=== PATIENT | male | born 1965 | race Hispanic/Latino ===

== ENCOUNTER 2018-04-28 16:05 | Observation (INO) | payer BC ==
--- OUTSIDE RECORDS SUMMARY | 2018-04-28 16:09 | XMS REPORT ---
:1965 Author Organization eClinicalWorks Care Team Providers Name Role Phone ROMERO YANCEY Provider Role Unavailable Allergies No Known Allergies Problems Problem Type Condition Code Onset Dates Condition Status Problem Type 2 diabetes mellitus without E11.9 Active complications Problem Other hyperlipidemia E78.4 Active Problem CAD of [place] Artery W Angina I25.111 Active Problem Essential (primary) hypertension I10 Active Medications Medication Code Code Instructions Start End Date Status Dosage System Date Metoprolol [facility] [id number] 100 orally 2 Active 1/2 Tartrate times a day tab(s) Results No Known Results Summary Purpose eClinicalWorks Submission
--- OUTSIDE RECORDS SUMMARY | 2018-04-28 16:09 | XMS REPORT ---
:1965 Author Organization eClinicalWorks Care Team Providers Name Role Phone ROMERO YANCEY Provider Role Unavailable Allergies, Adverse Reactions, Alerts Substance Reaction Event Type N.K.D.A. Info Not Available Non Drug Allergy Problems Problem Type Condition Code Onset Dates Condition Status Assessment Type 2 diabetes mellitus without E11.9 Active complications Assessment Other hyperlipidemia E78.4 Active Problem CAD of [place] Artery W Angina I25.111 Active Problem Type 2 diabetes mellitus without E11.9 Active complications Problem Coronary artery disease involving I25.10 Active [place] coronary artery of [place] heart without angina pectoris Assessment Coronary artery disease involving I25.10 Active [place] coronary artery of [place] heart without angina pectoris Assessment Essential (primary) hypertension I10 Active Problem Other hyperlipidemia E78.4 Active Problem Essential (primary) hypertension I10 Active Medications Medication Code Code Instructions Start End Date Status Dosage System Date Aspir 81 [facility] 41902813523 81 mg orally Active 1 tab(s) once a day amlodipine [facility] 06007534896 10 mg orally Active 1 tab(s) once a day Crestor [facility] 98224047084 10 mg orally Feb 22, Active 1 tab(s) once a day (at 2017 bedtime) lisinopril [facility] 52008624641 40 mg orally Active 1 tab(s) once a day Metoprolol [facility] 74233276246 100 orally 2 Active 1/2 Tartrate times a day tab(s) Vital Signs Date/Time: Nov 12, 2016 Blood Pressure Systolic 130 mm Hg Weight 145 lbs Height 65 in BMI 24.13 Index Blood Pressure Diastolic 80 mm Hg Results No Known Results Summary Purpose [employer] Submission
--- OUTSIDE RECORDS SUMMARY | 2018-04-28 16:09 | XMS REPORT ---
:1965 Author Organization eClinicalWorks Care Team Providers Name Role Phone ROMERO YANCEY Provider Role Unavailable Allergies No Known Allergies Problems Problem Type Condition Code Onset Dates Condition Status Problem Essential (primary) hypertension I10 Active Problem Essential hypertension I10 Active Problem Atherosclerosis of [place] coronary I25.118 Active artery of [place] heart with stable angina pectoris Problem Unstable angina I20.0 Active Problem Type 2 diabetes mellitus without E11.9 Active complications Problem Other hyperlipidemia E78.4 Active Problem Coronary artery disease involving I25.10 Active [place] coronary artery of [place] heart without angina pectoris Problem CAD of [place] Artery W Angina I25.111 Active Medications Medication Code Code Instructions Start End Date Status Dosage System Date Brilinta [facility] [id number] 90 mg orally 2 Active 1 tab(s) (ticagrelor) times a day Results No Known Results Summary Purpose eClinicalWorks Submission
--- OUTSIDE RECORDS SUMMARY | 2018-04-28 16:09 | XMS REPORT ---
:1965 Author Organization eClinicalWorks Care Team Providers Name Role Phone ROMERO YANCEY Provider Role Unavailable Allergies No Known Allergies Problems Problem Type Condition Code Onset Dates Condition Status Problem Essential (primary) hypertension I10 Active Problem Essential hypertension I10 Active Problem Atherosclerosis of [place] coronary I25.118 Active artery of [place] heart with stable angina pectoris Problem Unstable angina I20.0 Active Problem Type 2 diabetes mellitus without E11.9 Active complications Problem Other hyperlipidemia E78.4 Active Problem Coronary artery disease involving I25.10 Active [place] coronary artery of [place] heart without angina pectoris Problem CAD of [place] Artery W Angina I25.111 Active Medications No Known Medications Results No Known Results Summary Purpose [employer] Submission
--- OUTSIDE RECORDS SUMMARY | 2018-04-28 16:09 | XMS REPORT ---
:1965 Author Organization eClinicalWorks Care Team Providers Name Role Phone ROMERO YANCEY Provider Role Unavailable Allergies No Known Allergies Problems Problem Type Condition Code Onset Dates Condition Status Problem Type 2 diabetes mellitus without E11.9 Active complications Problem Other hyperlipidemia E78.4 Active Problem CAD of [place] Artery W Angina I25.111 Active Problem Essential (primary) hypertension I10 Active Assessment Essential (primary) hypertension I10 Active Medications Medication Code System Code Instructions Start Date End Date Status Dosage Crestor [facility] [id number] 10 mg orally once Feb 22, Active 1 tab(s) a day (at 2017 bedtime) Results No Known Results Summary Purpose eClinicalWorks Submission
--- OUTSIDE RECORDS SUMMARY | 2018-04-28 16:09 | XMS REPORT ---
:1965 Author Organization eClinicalWorks Care Team Providers Name Role Phone ERINN GANT Provider Role Unavailable Allergies, Adverse Reactions, Alerts Substance Reaction Event Type N.K.D.A. Info Not Available Non Drug Allergy Problems Problem Type Condition Code Onset Dates Condition Status Assessment Pain in right leg M79.604 Active Problem Essential (primary) hypertension I10 Active Assessment Atherosclerosis of [place] coronary I25.118 Active artery of [place] heart with stable angina pectoris Assessment Essential (primary) hypertension I10 Active Assessment Pain of left leg M79.605 Active Problem Essential hypertension I10 Active Problem Atherosclerosis of [place] coronary I25.118 Active artery of [place] heart with stable angina pectoris Problem Unstable angina I20.0 Active Problem Type 2 diabetes mellitus without E11.9 Active complications Problem Other hyperlipidemia E78.4 Active Problem Coronary artery disease involving I25.10 Active [place] coronary artery of [place] heart without angina pectoris Problem CAD of [place] Artery W Angina I25.111 Active Medications Medication Code Code Instructions Start End Date Status Dosage System Date amlodipine [facility] [id number] 10 mg orally Active 1 tab(s) once a day clonazepam [place] 93264070870 0.5 mg orally 2 Mar 17, Active 1 tab(s) times a day as [address] [facility] 15773663788 10 mg orally Active 1 tab(s) once a day (at bedtime) Aspir [address] [facility] 48055736264 81 mg orally Active 1 tab(s) once a day Brilinta ND 89348625875 90 mg orally 2 Active 1 tab(s) (ticagrelor) times a day carvedilol ND 24569847677 12.5 mg orally 2 Oct 21, Active 1 tab(s) times a day [address] [facility] 45391706473 40 mg orally Active 1 tab(s) once a day Vital Signs Date/Time: Mar 29, 2018 Blood Pressure Diastolic 90 mm Hg Blood Pressure Systolic 140 mm Hg Height 65 in Results No Known Results Summary Purpose eClinicalWorks Submission
--- OUTSIDE RECORDS SUMMARY | 2018-04-28 16:09 | XMS REPORT ---
:1965 Author Organization eClinicalWorks Care Team Providers Name Role Phone ROMERO YANCEY Provider Role Unavailable Allergies No Known Allergies Problems Problem Type Condition Code Onset Dates Condition Status Problem Essential (primary) hypertension I10 Active Problem Essential hypertension I10 Active Problem Atherosclerosis of [place] coronary I25.118 Active artery of [place] heart with stable angina pectoris Problem Unstable angina I20.0 Active Problem Type 2 diabetes mellitus without E11.9 Active complications Problem Other hyperlipidemia E78.4 Active Problem Coronary artery disease involving I25.10 Active [place] coronary artery of [place] heart without angina pectoris Problem CAD of [place] Artery W Angina I25.111 Active Medications No Known Medications Results No Known Results Summary Purpose [employer] Submission
--- OUTSIDE RECORDS SUMMARY | 2018-04-28 16:09 | XMS REPORT | Continuity of Care Document ---
:1965 Author Organization Interface Problems Problem Status Onset Classification Date Comments Source Date Reported Type 2 diabetes Active Diagnosis 04/26/2018 [place] mellitus without Cardiac complications Clinic Other Active Problem 04/26/2018 [place] hyperlipidemia [facility]iac [facility] CAD of [place] Active Problem 04/26/2018 [place] Artery W Angina [facility] Essential Active Problem 04/26/2018 [place] hypertension [facility]iac [facility] Atherosclerosis of Active Diagnosis 04/26/2018 [place] coronary Cardiac artery of [facility] heart with stable angina pectoris Unstable angina Active Problem 04/26/2018 [place] [facility] Coronary artery Active Problem 04/26/2018 [place] disease involving Cardiac [place] coronary [facility] artery of [place] heart without angina pectoris Pain in right leg Active Diagnosis 03/30/2018 [place] [facility] Pain of left leg Active Diagnosis 03/30/2018 [place] [facility] Unsteady gait Active Problem 04/26/2018 [place] [facility] Hyperlipidemia NOS Active Problem 11/09/2013 [place] [facility] Hypertension Active Problem 11/09/2013 [place] [facility] Coronary Active Problem 11/09/2013 [place] atherosclerosis of Cardiac [facility] vessel Clinic Diabetes Type II Active Diagnosis 11/09/2013 [place] [facility] Nausea Active Diagnosis 2018 [place] [facility] Atherosclerotic Active Diagnosis 12/27/2014 [place] heart disease of Cardiac [place] coronary [facility] artery with angina pectoris with documented spasm CAD of [place] Active Problem 07/12/2015 [place] Artery with Angina Cardiac Clinic Other specified Active Diagnosis 11/01/2015 [place] cardiac arrhythmias [facility]iac Clinic Chest pain, Active Diagnosis 04/11/2016 [place] unspecified type Cardiac Clinic Medications Medication Details Route Status Patient Ordering Order Source Instructions Provider Date clonazepam 1 tab(s) orally Active 0.5 mg orally [facility] [place] 2 times a day 019 Cardiac as needed Clinic carvedilol 1 tab(s) orally Active 12.5 mg orally [facility] [place] 2 times a day 018 [facility]iac Clinic Metoprolol 1/2 orally Active 100 orally 2 [facility] [place] Tartrate tab(s) times a day 018 Cardiac Clinic Crestor 1 tab(s) orally Active 10 mg orally [facility] [place] once a day (at 017 Cardiac bedtime) Clinic Crestor 1 tab(s) orally Active 10 mg orally [facility] [place] once a day (at 017 Cardiac bedtime) Clinic Atorvastatin 1 tab(s) orally No 40 mg orally [facility] [place] Calcium Longer once a day (at 016 Cardiac Active bedtime) Clinic Pravachol 1 tab(s) orally No 40 mg orally [facility] [place] Longer once a day (at 016 Cardiac Active bedtime) Clinic lisinopril 1 tab(s) orally Active 40 mg orally [facility] [place] once a day 015 Cardiac Clinic Pravachol 1 tab(s) orally Active 40 mg orally [facility] [place] once a day (at 014 Cardiac bedtime) Clinic Metoprolol 1/2 orally Active 100 mg orally [facility] [place] Tartrate tab(s) 2 times a day 012 Cardiac Clinic Nitrostat 1 tab(s) sublingually Active 0.4 mg [facility] [place] sublingually 012 Cardiac every 5 Clinic minutes Aspirin Low 1 tab(s) orally Active 81 mg orally [facility] [place] Dose once a day 011 Cardiac Clinic amlodipine 1 tab(s) orally Active 10 mg orally [facility] [place] once a day 011 Cardiac Clinic Metoprolol 1/2 orally Active 100 orally 2 [facility] Tartrate tab(s) times a day Cardiac Clinic lisinopril 1 tab(s) orally Active 40 mg orally [facility] once a day Cardiac Clinic amlodipine 1 tab(s) orally Active 10 mg orally [facility] once a day Cardiac Clinic Aspir 81 1 tab(s) orally Active 81 mg orally [facility] once a day Cardiac Clinic amlodipine 1 tab(s) orally Active 10 mg orally [facility] once a day Cardiac Clinic Crestor 1 tab(s) orally Active 10 mg orally [facility] once a day (at Cardiac bedtime) Clinic Brilinta 1 tab(s) orally Active 90 mg orally 2 [facility] (ticagrelor) times a day Cardiac Clinic lisinopril 1 tab(s) orally Active 40 mg orally [facility] once a day Cardiac Clinic lisinopril 1 tab(s) orally Active 40 mg orally [facility] once a day Cardiac Clinic Pravachol 1 tab(s) orally Active 40 orally once [facility] [place] a day (at Cardiac bedtime) Clinic Metoprolol 1/2 orally Active 100 mg orally [facility] [place] Tartrate tab(s) 2 times a day Cardiac Clinic Allergies, Adverse Reactions, Alerts Substance Category Reaction Severity Reaction Status Date Comments Source type Reported N.K.D.A. Adverse Info Not Adverse Active [place] Reaction Available Reaction 9 Cardiac Clinic Immunizations Immunization Date Given Site Status Last Updated Comments Source Results Order Results Value Reference Date Interpretation Comments Source Name Range Vital Signs Vital Sign Value Date Comments Source Systolic (mm Hg) 138 04/24/2018 [place] [facility] Weight 150 04/24/2018 [place] [facility] Height 65 04/24/2018 [place] [facility] Diastolic (mm Hg) 86 04/24/2018 [place] [facility] Diastolic (mm Hg) 90 03/29/2018 [place] [facility] Systolic (mm Hg) 140 03/29/2018 [place] [facility] Height 65 03/29/2018 [place] [facility] Systolic (mm Hg) 110 03/23/2018 [place] [facility] Weight 147 03/23/2018 [place] [facility] Height 65 03/23/2018 [place] [facility] Diastolic (mm Hg) 80 03/23/2018 [place] [facility] Systolic (mm Hg) 150 03/07/2018 [place] [facility] Weight 152 03/07/2018 [place] [facility] Height 65 03/07/2018 [place] [facility] Diastolic (mm Hg) 90 03/07/2018 [place] [facility] Systolic (mm Hg) 130 11/11/2017 [place] [facility] Weight 150.8 11/11/2017 [place] [facility] Height 65 11/11/2017 [place] [facility] Diastolic (mm Hg) 70 11/11/2017 [place] [facility] Systolic (mm Hg) 142 10/26/2017 [place] [facility] Weight 152.2 10/26/2017 [place] [facility] Height 65 10/26/2017 [place] [facility] Diastolic (mm Hg) 80 10/26/2017 [place] [facility] Systolic (mm Hg) 146 10/21/2017 [place] [facility] Weight 153 10/21/2017 [place] [facility] Height 65 10/21/2017 [place] [facility] Heart Rate 39 10/21/2017 [place] [facility] Diastolic (mm Hg) 80 10/21/2017 [place] [facility] Systolic (mm Hg) 134 06/10/2017 [place] [facility] Weight 147.4 06/10/2017 [place] [facility] Height 65 06/10/2017 [place] [facility] Diastolic (mm Hg) 80 06/10/2017 [place] [facility] Systolic (mm Hg) 130 11/12/2016 [place] [facility] Weight 145 11/12/2016 [place] [facility] Height 65 11/12/2016 [place] [facility] Diastolic (mm Hg) 80 11/12/2016 [place] [facility] Systolic (mm Hg) 130 07/09/2016 [place] [facility] Weight 141 07/09/2016 [place] [facility] Height 65 07/09/2016 [place] [facility] Diastolic (mm Hg) 70 07/09/2016 [place] [facility] Systolic (mm Hg) 140 04/09/2016 [place] [facility] Weight 142 04/09/2016 [place] [facility] Height 65 04/09/2016 [place] [facility] Diastolic (mm Hg) 90 04/09/2016 [place] [facility] Diastolic (mm Hg) 70 12/15/2015 [place] [facility] Systolic (mm Hg) 100 12/15/2015 [place] [facility] Height 65 12/15/2015 [place] [facility] Systolic (mm Hg) 160 10/31/2015 [place] [facility] Weight 144 10/31/2015 [place] [facility] Height 65 10/31/2015 [place] [facility] Diastolic (mm Hg) 70 10/31/2015 [place] [facility] Systolic (mm Hg) 130 07/11/2015 [place] [facility] Weight 142 07/11/2015 [place] [facility] Height 65 07/11/2015 [place] [facility] Diastolic (mm Hg) 70 07/11/2015 [place] [facility] Systolic (mm Hg) 138 12/25/2014 [place] [facility] Weight 142 12/25/2014 [place] [facility] Height 65 12/25/2014 [place] [facility] Diastolic (mm Hg) 80 12/25/2014 [place] [facility] Systolic (mm Hg) 160 12/13/2014 [place] [facility] Weight 141 12/13/2014 [place] [facility] Height 65 12/13/2014 [place] [facility] Diastolic (mm Hg) 80 12/13/2014 [place] [facility] Systolic (mm Hg) 124 10/26/2013 [place] [facility] Weight 143 10/26/2013 [place] [facility] Height 65 10/26/2013 [place] [facility] Diastolic (mm Hg) 80 10/26/2013 [place] [facility] Encounters Location Location Encounter Encounter Reason Attending ADM DC Status Source Details Type Number For Provider Date Date Visit [place] Unknown [id number] 10/26 10/26 [place] [facility] [id number] Cardiac Clinic. [id number] Clinic 032 [place] Unknown [id number] 10/26 10/26 [place] [facility] [id number] /2013 [facility] Clinic. [id number] Clinic 7ab [place] Unknown [id number] 10/26 10/26 [place] [facility] [id number] /2013 [facility] Clinic. [id number] Clinic 098 [place] Unknown [id number] 10/26 10/26 [place] [facility] [id number] /2013 [facility] Clinic. [id number] Clinic b5c [place] Unknown [id number] 10/26 10/26 [place] [facility] [id number] /2013 [facility] Clinic. [id number] Clinic 7d9 [place] Unknown [id number] 10/26 10/26 [place] [facility] [id number] /2013 Cardiac Clinic. [id number] Clinic 629 [place] Unknown [id number] 10/26 10/26 [place] [facility] [id number] /2013 Card[facility] Clinic. [id number] Clinic 84e [place] Unknown [id number] 10/26 10/26 [place] [facility] [id number] /2013 [facility] Clinic. [id number] Clinic 6d3 [place] Refills [id number] 04/04 04/04 [place] [facility] [id number] /2014 Cardiac Clinic. [id number] Clinic 3e7 [place] [facility] [id number] 04/04 04/04 [place] [facility] [id number] /2014 Cardiac Clinic. [id number] Clinic 969 [place] Refills [id number] 04/04 04/04 [place] [facility] [id number] /2014 Cardiac Clinic. [id number] Clinic 03e [place] [facility] [id number] 04/04 04/04 [place] [facility] [id number] /2014 Cardiac Clinic. 2-[id number] Clinic f6f [place] Ref[facility] [id number] 04/04 04/04 [place] [facility] [id number] /2014 Cardiac Clinic. [id number] Clinic 3eb [place] Ref[facility] [id number] 04/04 04/04 [place] [facility] [id number] /2014 Cardiac Clinic. [id number] Clinic 799 [place] Refills [id number] 04/04 04/04 [place] [facility] [id number] /2014 Cardiac Clinic. 6-[id number] Clinic ea8 [place] follow up [id number] 07/05 07/05 [place] [facility] [id number] /2014 Card[facility] Clinic. [id number] Clinic e99 [place] follow up [id number] 07/05 07/05 [place] [facility] [id number] /2014 Cardiac Clinic. f-[id number] Clinic db3 [place] follow up [id number] 07/05 07/05 [place] [facility] [id number] /2014 Cardiac Clinic. [id number] Clinic 69f [place] follow up [id number] 07/05 07/05 [place] [facility] [id number] /2014 Cardiac Clinic. [id number] Clinic 281 [place] follow up [id number] 07/05 07/05 [place] [facility] [id number] /2014 Cardiac Clinic. 0-[id number] Clinic 381 [place] follow up [id number] 07/05 07/05 [place] [facility] [id number] /2014 Cardiac Clinic. [id number] Clinic 2bd [place] follow up [id number] 07/05 07/05 [place] [facility] [id number] /2014 Cardiac Clinic. [id number] Clinic 580 [place] Unknown [id number] 12/13 12/13 [place] [facility] [id number] /2014 Cardiac Clinic. [id number] Clinic 4fc [place] Unknown [id number] 12/13 12/13 [place] [facility] [id number] /2014 Cardiac Clinic. [id number] Clinic 31c [place] Unknown [id number] 12/13 12/13 [place] [facility] [id number] /2014 Cardiac Clinic. [id number] Clinic 3b7 [place] Unknown [id number] 12/13 12/13 [place] [facility] [id number] /2014 Cardiac Clinic. 5-[id number] Clinic b73 [place] Unknown [id number] 12/13 12/13 [place] [facility] [id number] /2014 Cardiac Clinic. [id number] Clinic c5f [place] Unknown [id number] 12/13 12/13 [place] [facility] [id number] /2014 Cardiac Clinic. [id number] Clinic 52d [place] Unknown [id number] 12/13 12/13 [place] [facility] [id number] /2014 Cardiac Clinic. 6-[id number] Clinic c1f [place] Unknown [id number] 12/25 12/25 [place] [facility] [id number] /2014 Cardiac Clinic. 9-[id number] Clinic b2c [place] Unknown [id number] 12/25 12/25 [place] [facility] [id number] /2014 Cardiac Clinic. [id number] Clinic ee9 [place] Unknown [id number] 12/25 12/25 [place] [facility] [id number] /2014 Cardiac Clinic. [id number] Clinic fd6 [place] Unknown [id number] 12/25 12/25 [place] [facility] [id number] /2014 Cardiac Clinic. [id number] Clinic 657 [place] Unknown [id number] 12/25 12/25 [place] [facility] [id number] /2014 Cardiac Clinic. [id number] Clinic 85b [place] Unknown [id number] 12/25 12/25 [place] [facility] [id number] /2014 Cardiac Clinic. 8-[id number] Clinic 495 [place] Unknown [id number] 07/10 07/10 [place] [facility] [id number] /2015 Cardiac Clinic. 0-[id number] Clinic f2c [place] Unknown [id number] 07/10 07/10 [place] [facility] [id number] /2015 Cardiac Clinic. [id number] Clinic a5e [place] Unknown [id number] 07/10 07/10 [place] [facility] [id number] /2015 Cardiac Clinic. [id number] Clinic 198 [place] Unknown [id number] 07/10 07/10 [place] [facility] [id number] /2015 Cardiac Clinic. [id number] Clinic 1c2 [place] Unknown [id number] 07/10 07/10 [place] [facility] [id number] /2015 Cardiac Clinic. [id number] Clinic ca3 [place] follow up [id number] 10/30 10/30 [place] [facility] [id number] /2015 Cardiac Clinic. [id number] Clinic f70 [place] Unknown [id number] 12/14 12/14 [place] [facility] [id number] /2015 Cardiac Clinic. c-[id number] Clinic ea7 [place] Unknown [id number] 02/22 02/22 [place] [facility] [id number] /2016 Cardiac Clinic. [id number] Clinic 7a3 [place] Unknown [id number] 02/22 02/22 [place] [facility] [id number] /2016 Cardiac Clinic. b-[id number] Clinic 1c4 [place] follow up [id number] 04/09 04/09 [place] [facility] [id number] /2016 Cardiac Clinic. [id number] Clinic 292 Procedures Procedure Code Date Perfomer Comments Source
--- OUTSIDE RECORDS SUMMARY | 2018-04-28 16:09 | XMS REPORT ---
:1965 Author Organization eClinicalWorks Care Team Providers Name Role Phone ROMERO YANCEY Provider Role Unavailable Allergies, Adverse Reactions, Alerts Substance Reaction Event Type N.K.D.A. Info Not Available Non Drug Allergy Problems Problem Type Condition Code Onset Dates Condition Status Problem Type 2 diabetes mellitus without E11.9 Active complications Problem Other hyperlipidemia E78.4 Active Problem CAD of [place] Artery W Angina I25.111 Active Assessment CAD of [place] Artery W Angina I25.111 Active Assessment Type 2 diabetes mellitus without E11.9 Active complications Problem Essential (primary) hypertension I10 Active Assessment Essential (primary) hypertension I10 Active Medications No Known Medications Vital Signs Date/Time: July 09, 2016 Blood Pressure Systolic 130 mm Hg Weight 141 lbs Height 65 in BMI 23.46 Index Blood Pressure Diastolic 70 mm Hg Results No Known Results Summary Purpose eClinicalWorks Submission
--- OUTSIDE RECORDS SUMMARY | 2018-04-28 16:09 | XMS REPORT ---
:1965 Author Organization eClinicalWorks Care Team Providers Name Role Phone ROMERO YANCEY Provider Role Unavailable Allergies, Adverse Reactions, Alerts Substance Reaction Event Type N.K.D.A. Info Not Available Non Drug Allergy Problems Problem Type Condition Code Onset Dates Condition Status Assessment Essential (primary) hypertension I10 Active Problem Type 2 diabetes mellitus without E11.9 Active complications Problem Other hyperlipidemia E78.4 Active Problem Coronary artery disease involving I25.10 Active [place] coronary artery of [place] heart without angina pectoris Assessment CAD of [place] Artery W Angina I25.111 Active Assessment Type 2 diabetes mellitus without E11.9 Active complications Problem Essential (primary) hypertension I10 Active Problem CAD of [place] Artery W Angina I25.111 Active Medications Medication Code Code Instructions Start End Date Status Dosage System Date lisinopril [facility] 35337484850 40 mg orally Active 1 tab(s) once a day Crestor [facility] 35909377056 10 mg orally Feb 22, Active 1 tab(s) once a day (at 2017 bedtime) amlodipine [facility] 55117426224 10 mg orally Active 1 tab(s) once a day Aspir 81 [facility] 31301254910 81 mg orally Active 1 tab(s) once a day Metoprolol [facility] 30498801943 100 orally 2 Active 1/2 Tartrate times a day tab(s) Vital Signs Date/Time: June 10, 2017 Blood Pressure Systolic 134 mm Hg Weight 147.4 lbs Height 65 in BMI 24.53 Index Blood Pressure Diastolic 80 mm Hg Results No Known Results Summary Purpose eClinicalWorks Submission
--- OUTSIDE RECORDS SUMMARY | 2018-04-28 16:10 | XMS REPORT ---
:1965 Author Organization eClinicalWorks Care Team Providers Name Role Phone ROMERO YANCEY Provider Role Unavailable Allergies, Adverse Reactions, Alerts Substance Reaction Event Type N.K.D.A. Info Not Available Non Drug Allergy Problems Problem Type Condition Code Onset Dates Condition Status Assessment Other hyperlipidemia E78.4 Active Assessment Type 2 diabetes mellitus without E11.9 Active complications Assessment Essential (primary) hypertension I10 Active Problem Coronary artery disease involving I25.10 Active [place] coronary artery of [place] heart without angina pectoris Problem Type 2 diabetes mellitus without E11.9 Active complications Problem Atherosclerosis of [place] coronary I25.118 Active artery of [place] heart with stable angina pectoris Problem CAD of [place] Artery W Angina I25.111 Active Assessment Atherosclerosis of [place] coronary I25.118 Active artery of [place] heart with stable angina pectoris Problem Other hyperlipidemia E78.4 Active Problem Essential (primary) hypertension I10 Active Medications Medication Code Code Instructions Start End Status Dosage System Date Date Metoprolol [facility] 08633373058 100 orally 2 Sept Inactive 1/2 Tartrate times a day , tab(s) 2017 amlodipine [facility] 79140519769 10 mg orally Active 1 tab(s) once a day carvedilol [facility] 80607775587 12.5 mg orally 2 Oct 21, Active 1 tab(s) times a day 2018 Crestor [facility] 89593548473 10 mg orally Feb 22, Active 1 tab(s) once a day (at 2017 bedtime) Aspir 81 [facility] 39595971289 81 mg orally Active 1 tab(s) once a day lisinopril [facility] 72676193526 40 mg orally Active 1 tab(s) once a day Vital Signs Date/Time: Oct 21, 2017 Blood Pressure Systolic 146 mm Hg Weight 153 lbs Height 65 in BMI 25.46 Index Cardiac Monitoring Heart Rate 39 /min Blood Pressure Diastolic 80 mm Hg Results No Known Results Summary Purpose eClinicalWorks Submission
--- OUTSIDE RECORDS SUMMARY | 2018-04-28 16:10 | XMS REPORT ---
:1965 Author Organization eClinicalWorks Care Team Providers Name Role Phone ROMERO YANCEY Provider Role Unavailable Allergies No Known Allergies Problems Problem Type Condition Code Onset Dates Condition Status Problem Coronary artery disease involving I25.10 Active [place] coronary artery of [place] heart without angina pectoris Problem Type 2 diabetes mellitus without E11.9 Active complications Problem Atherosclerosis of [place] coronary I25.118 Active artery of [place] heart with stable angina pectoris Problem CAD of [place] Artery W Angina I25.111 Active Problem Other hyperlipidemia E78.4 Active Problem Essential (primary) hypertension I10 Active Medications Medication Code System Code Instructions Start Date End Date Status Dosage Crestor [facility] [id number] 10 mg orally once Feb 22, Active 1 tab(s) a day (at 2017 bedtime) lisinopril [facility] 40771550804 40 mg orally once Active 1 tab(s) a day Results No Known Results Summary Purpose eClinicalWorks Submission
--- OUTSIDE RECORDS SUMMARY | 2018-04-28 16:10 | XMS REPORT ---
:1965 Author Organization eClinicalWorks Care Team Providers Name Role Phone ROMERO YANCEY Provider Role Unavailable Allergies, Adverse Reactions, Alerts Substance Reaction Event Type N.K.D.A. Info Not Available Non Drug Allergy Problems Problem Type Condition Code Onset Dates Condition Status Assessment Atherosclerosis of [place] coronary I25.118 Active artery of [place] heart with stable angina pectoris Problem Essential (primary) hypertension I10 Active Assessment Nausea R11.0 Active Assessment Essential (primary) hypertension I10 Active Problem Essential hypertension I10 Active Problem Atherosclerosis of [place] coronary I25.118 Active artery of [place] heart with stable angina pectoris Problem Unstable angina I20.0 Active Problem Type 2 diabetes mellitus without E11.9 Active complications Problem Other hyperlipidemia E78.4 Active Problem Coronary artery disease involving I25.10 Active [place] coronary artery of [place] heart without angina pectoris Problem CAD of [place] Artery W Angina I25.111 Active Medications Medication Code Code Instructions Start End Date Status Dosage System Date Crestor [facility] 61207248681 10 mg orally Active 1 tab(s) once a day (at bedtime) Brilinta [facility] 12276917513 90 mg orally 2 Active 1 tab(s) (ticagrelor) times a day carvedilol ND 29444343878 12.5 mg orally 2 Oct 21, Active 1 tab(s) times a day 2018 Aspir 81 [facility] 46044182382 81 mg orally Active 1 tab(s) once a day amlodipine [facility] 21726017655 10 mg orally Active 1 tab(s) once a day lisinopril [facility] 93505354868 40 mg orally Active 1 tab(s) once a day clonazepam [facility] 48612905000 0.5 mg orally 2 Mar 17, Active 1 tab(s) times a day as 2019 needed Vital Signs Date/Time: Mar 23, 2018 Blood Pressure Systolic 110 mm Hg Weight 147 lbs Height 65 in BMI 24.46 Index Blood Pressure Diastolic 80 mm Hg Results No Known Results Summary Purpose eClinicalWorks Submission
--- OUTSIDE RECORDS SUMMARY | 2018-04-28 16:10 | XMS REPORT ---
:1965 Author Organization eClinicalWorks Care Team Providers Name Role Phone ROMERO AYNCEY Provider Role Unavailable Allergies, Adverse Reactions, Alerts Substance Reaction Event Type N.K.D.A. Info Not Available Non Drug Allergy Problems Problem Type Condition Code Onset Dates Condition Status Problem Essential (primary) hypertension I10 Active Problem Unsteady gait R26.81 Active Assessment Unsteady gait R26.81 Active Assessment Type 2 diabetes mellitus without E11.9 Active complications Assessment Essential hypertension I10 Active Assessment Atherosclerosis of [place] coronary I25.118 Active artery of [place] heart with stable angina pectoris Problem Essential hypertension I10 Active Problem Atherosclerosis of [place] coronary I25.118 Active artery of [place] heart with stable angina pectoris Problem Unstable angina I20.0 Active Problem Type 2 diabetes mellitus without E11.9 Active complications Problem Other hyperlipidemia E78.4 Active Problem Coronary artery disease involving I25.[address] [place] coronary artery of [place] heart without angina pectoris Problem CAD of [place] Artery W Angina I25.111 Active Medications Medication Code Code Instructions Start End Date Status Dosage System Date Brilinta [facility] 72349499684 90 mg orally 2 Active 1 tab(s) (ticagrelor) times a day lisinopril ND 27002159431 40 mg orally Active 1 tab(s) once a day carvedilol ND 19636281531 12.5 mg orally 2 Oct 21, Active 1 tab(s) times a day 2018 Aspir 81 [facility] 18605874863 81 mg orally Active 1 tab(s) once a day amlodipine ND 44768271006 10 mg orally Active 1 tab(s) once a day Crestor ND 15855311110 10 mg orally Active 1 tab(s) once a day (at bedtime) clonazepam ND 26704593449 0.5 mg orally 2 Mar 17, Active 1 tab(s) times a day as 2019 needed Vital Signs Date/Time: April 24, 2018 Blood Pressure Systolic 138 mm Hg Weight 150 lbs Height 65 in BMI 24.96 Index Blood Pressure Diastolic 86 mm Hg Results No Known Results Summary Purpose eClinicalWorks Submission
--- OUTSIDE RECORDS SUMMARY | 2018-04-28 16:10 | XMS REPORT ---
:1965 Author Organization eClinicalWorks Care Team Providers Name Role Phone ROMERO YANCEY Provider Role Unavailable Allergies, Adverse Reactions, Alerts Substance Reaction Event Type N.K.D.A. Info Not Available Non Drug Allergy Encounters Encounter Location Date Unknown [facility]. Oct 26, 2013 Problems Problem Type Condition ICD-9 Code Onset Dates Condition Status Problem Hyperlipidemia NOS 272.4 Active Problem Hypertension 401.9 Active Problem Coronary atherosclerosis of 414.01 Active [place] vessel Assessment Diabetes Type II 250.00 Active Problem Diabetes Type II 250.00 Active Assessment Coronary atherosclerosis of 414.01 Active [place] vessel Medications Medication Code System Code Instructions Start Date End Date Status Dosage Aspirin Low [facility] 511965 81 mg orally once Nov 13, Active 1 tab(s) Dose a day 2010 amlodipine [facility] 80849 5 mg orally once Oct 09, Active 1 tab(s) a day 2010 lisinopril [facility] 43730 40 mg orally once Active 1 tab(s) a day Pravachol [facility] 1884 40 mg orally once June 14, Active 1 tab(s) a day (at 2013 bedtime) Nitrostat [facility] 2586 0.4 mg August 30, Active 1 tab(s) sublingually 2011 every 5 minutes Metoprolol [facility] 1073 100 mg orally 2 Nov 14, Active 1/2 tab(s) Tartrate times a day 2011 Social History Social History Element Qualifiers Date Reported Tobacco use: never. Status Never smoked Oct 27, 2013 Alcohol: yes. Socially Oct 27, 2013 Vital Signs Date/Time: Oct 26, 2013 Blood Pressure Systolic 124 mm Hg Weight 143 lbs Height 65 in Blood Pressure Diastolic 80 mm Hg Summary Purpose eClinicalWorks Submission
--- OUTSIDE RECORDS SUMMARY | 2018-04-28 16:10 | XMS REPORT ---
:1965 Author Organization eClinicalWorks Care Team Providers Name Role Phone ROMERO YANCEY Provider Role Unavailable Allergies No Known Allergies Problems Problem Type Condition Code Onset Dates Condition Status Problem Essential (primary) hypertension I10 Active Problem Essential hypertension I10 Active Problem Atherosclerosis of [place] coronary I25.118 Active artery of [place] heart with stable angina pectoris Problem Unstable angina I20.0 Active Problem Type 2 diabetes mellitus without E11.9 Active complications Problem Other hyperlipidemia E78.4 Active Problem Coronary artery disease involving I25.10 Active [place] coronary artery of [place] heart without angina pectoris Problem CAD of [place] Artery W Angina I25.111 Active Medications No Known Medications Results No Known Results Summary Purpose [employer] Submission
--- OUTSIDE RECORDS SUMMARY | 2018-04-28 16:10 | XMS REPORT ---
:1965 Author Organization eClinicalWorks Care Team Providers Name Role Phone ROMERO YANCEY Provider Role Unavailable Allergies No Known Allergies Problems Problem Type Condition Code Onset Dates Condition Status Problem Essential (primary) hypertension I10 Active Problem Essential hypertension I10 Active Problem Atherosclerosis of [place] coronary I25.118 Active artery of [place] heart with stable angina pectoris Problem Unstable angina I20.0 Active Problem Type 2 diabetes mellitus without E11.9 Active complications Problem Other hyperlipidemia E78.4 Active Problem Coronary artery disease involving I25.10 Active [place] coronary artery of [place] heart without angina pectoris Problem CAD of [place] Artery W Angina I25.111 Active Medications No Known Medications Results No Known Results Summary Purpose eClinicalWorks Submission
--- OUTSIDE RECORDS SUMMARY | 2018-04-28 16:10 | XMS REPORT ---
:1965 Author Organization eClinicalWorks Care Team Providers Name Role Phone ROMERO YANCEY Provider Role Unavailable Allergies, Adverse Reactions, Alerts Substance Reaction Event Type N.K.D.A. Info Not Available Non Drug Allergy Problems Problem Type Condition Code Onset Dates Condition Status Assessment Unstable angina I20.0 Active Problem Essential (primary) hypertension I10 Active Assessment Essential hypertension I10 Active Problem Essential hypertension I10 Active Problem Atherosclerosis of [place] coronary I25.118 Active artery of [place] heart with stable angina pectoris Problem Unstable angina I20.0 Active Problem Type 2 diabetes mellitus without E11.9 Active complications Problem Other hyperlipidemia E78.4 Active Problem Coronary artery disease involving I25.10 Active [place] coronary artery of [place] heart without angina pectoris Problem CAD of [place] Artery W Angina I25.111 Active Medications Medication Code System Code Instructions Start Date End Date Status Dosage Crestor [facility] 16573717372 10 mg orally once Active 1 tab(s) a day (at bedtime) carvedilol [facility] 54809763081 12.5 mg orally 2 Oct 21, Active 1 tab(s) times a day 2018 amlodipine [facility] 05706816009 10 mg orally once Active 1 tab(s) a day lisinopril [facility] 40672867371 40 mg orally once Active 1 tab(s) a day Aspir 81 [facility] 60337224446 81 mg orally once Active 1 tab(s) a day Vital Signs Date/Time: Mar 07, 2018 Blood Pressure Systolic 150 mm Hg Weight 152 lbs Height 65 in BMI 25.29 Index Blood Pressure Diastolic 90 mm Hg Results No Known Results Summary Purpose [facility] Submission
--- OUTSIDE RECORDS SUMMARY | 2018-04-28 16:10 | XMS REPORT ---
[...] Problem Coronary artery disease involving I25.10 Active [place] coronary artery of [place] heart without angina pectoris Problem Type 2 diabetes mellitus without E11.9 Active complications Problem Atherosclerosis of [place] coronary I25.118 Active artery of [place] heart with stable angina pectoris Problem CAD of [place] Artery W Angina I25.111 Active Assessment Atherosclerosis of [place] coronary I25.118 Active artery of [place] heart with stable angina pectoris Problem Other hyperlipidemia E78.4 Active Problem Essential (primary) hypertension I10 Active Medications Medication Code System Code Instructions Start Date End Date Status Dosage Crestor [facility] 03264739620 10 mg orally once Feb 22, Active 1 tab(s) a day (at 2017 bedtime) Aspir 81 [facility] 70897279864 81 mg orally once Active 1 tab(s) a day lisinopril [facility] 06457480237 40 mg orally once Active 1 tab(s) a day carvedilol [facility] 11124331928 12.5 mg orally 2 Oct 21, Active 1 tab(s) times a day 2018 amlodipine [facility] 95142613399 10 mg orally once Active 1 tab(s) a day Vital Signs Date/Time: Nov 11, 2017 Blood Pressure Systolic 130 mm Hg Weight 150.8 lbs Height 65 in BMI 25.09 Index Blood Pressure Diastolic 70 mm Hg Results No Known Results Summary Purpose eClinicalWorks Submission
--- OUTSIDE RECORDS SUMMARY | 2018-04-28 16:10 | XMS REPORT ---
[...] Problem Coronary artery disease involving I25.10 Active [place] coronary artery of [place] heart without angina pectoris Problem Type 2 diabetes mellitus without E11.9 Active complications Problem Atherosclerosis of [place] coronary I25.118 Active artery of [place] heart with stable angina pectoris Problem CAD of [place] Artery W Angina I25.111 Active Assessment CAD of [place] Artery W Angina I25.111 Active Problem Other hyperlipidemia E78.4 Active Problem Essential (primary) hypertension I10 Active Medications Medication Code System Code Instructions Start Date End Date Status Dosage Crestor [facility] 99227419328 10 mg orally once Feb 22, Active 1 tab(s) a day (at 2017 bedtime) carvedilol [facility] 02549671570 12.5 mg orally 2 Oct 21, Active 1 tab(s) times a day 2018 lisinopril [facility] 23435059716 40 mg orally once Active 1 tab(s) a day amlodipine [facility] 53233202132 10 mg orally once Active 1 tab(s) a day Aspir 81 [facility] 28799843440 81 mg orally once Active 1 tab(s) a day Vital Signs Date/Time: Oct 26, 2017 Blood Pressure Systolic 142 mm Hg Weight 152.2 lbs Height 65 in BMI 25.32 Index Blood Pressure Diastolic 80 mm Hg Results No Known Results Summary Purpose [employer] Submission
--- OUTSIDE RECORDS SUMMARY | 2018-04-28 16:11 | XMS REPORT ---
:1965 Author Organization eClinicalWorks Care Team Providers Name Role Phone ROMERO YANCEY Provider Role Unavailable Allergies, Adverse Reactions, Alerts Substance Reaction Event Type N.K.D.A. Info Not Available Non Drug Allergy Encounters Encounter Location Date Unknown [facility]. Dec 13, 2014 Unknown [facility]. Dec 25, 2014 Unknown [facility]. July 11, 2015 Unknown [facility] Dec 15, 2015 Unknown [facility]. Oct 26, 2013 Refills [facility]. Apr 04, 2014 follow up [facility]. July 05, 2014 Problems Problem Type Condition ICD-9 Code Onset Dates Condition Status Assessment Other hyperlipidemia E78.4 Active Problem Type 2 diabetes mellitus without E11.9 Active complications Problem Other hyperlipidemia E78.4 Active Problem CAD of [place] Artery W Angina I25.111 Active Assessment Essential (primary) hypertension I10 Active Assessment Type 2 diabetes mellitus without E11.9 Active complications Problem Essential (primary) hypertension I10 Active Assessment CAD of [place] Artery W Angina I25.111 Active Medications Medication Code Code Instructions Start End Date Status Dosage System Date Metoprolol [facility] 1073 100 mg orally 2 Active 1/2 tab(s) Tartrate times a day Atorvastatin [facility] 870257 40 mg orally Dec 14, Active 1 tab(s) Calcium once a day (at 2015 bedtime) amlodipine [facility] 78107 10 mg orally Oct 09, Active 1 tab(s) once a day 2010 Nitrostat [facility] 2586 0.4 mg August 30, Active 1 tab(s) sublingually 2012 every 5 minutes lisinopril [facility] 40101 40 mg orally Dec 26, Active 1 tab(s) once a day 2014 Pravachol [facility] 1884 40 mg orally Oct 26, Dec 14, Inactive 1 tab(s) once a day (at 2015 2015 bedtime) Aspirin Low Dose [facility] 787192 81 mg orally Nov 13, Active 1 tab(s) once a day 2010 Social History Social History Element Qualifiers Date Reported Tobacco use: never. Status Never smoked Dec 15, 2015 Alcohol: yes. Socially Dec 15, 2015 Vital Signs Date/Time: Dec 15, 2015 Blood Pressure Diastolic 70 mm Hg Blood Pressure Systolic 100 mm Hg Height 65 in Summary Purpose eClinicalWorks Submission
--- OUTSIDE RECORDS SUMMARY | 2018-04-28 16:11 | XMS REPORT ---
:1965 Author Organization eClinicalWorks Care Team Providers Name Role Phone ROMERO YANCEY Provider Role Unavailable Encounters Encounter Location Date Unknown [facility]. Dec 13, 2014 Unknown [facility]. Dec 25, 2014 Unknown [facility]. July 11, 2015 Unknown [facility]. Feb 23, 2016 Unknown [facility]. Oct 26, 2013 Refills [facility]. Apr 04, 2014 follow up [facility]. July 05, 2014 Problems Problem Type Condition ICD-9 Code Onset Dates Condition Status Problem Type 2 diabetes mellitus without E11.9 Active complications Problem Other hyperlipidemia E78.4 Active Problem CAD of [place] Artery W Angina I25.111 Active Problem Essential (primary) hypertension I10 Active Medications Medication Code Code Instructions Start End Date Status Dosage System Date Crestor [facility] 75281 10 mg orally Feb 22, Active 1 tab(s) once a day (at 2016 bedtime) Atorvastatin [facility] 986914 40 mg orally Dec 14, Inactive 1 tab(s) Calcium once a day (at 2015 bedtime) Social History Social History Element Qualifiers Date Reported Tobacco use: never. Status Never smoked Dec 15, 2015 Alcohol: yes. Socially Dec 15, 2015 Summary Purpose eClinicalWorks Submission
--- OUTSIDE RECORDS SUMMARY | 2018-04-28 16:11 | XMS REPORT ---
:1965 Author Organization eClinicalWorks Care Team Providers Name Role Phone ROMERO YANCEY Provider Role Unavailable Encounters Encounter Location Date Unknown [facility]. Dec 13, 2014 Unknown [facility]. Oct 26, 2013 Refills [facility]. Apr 04, 2014 follow up [facility]. July 05, 2014 Problems Problem Type Condition ICD-9 Code Onset Dates Condition Status Assessment Type 2 diabetes mellitus without E11.9 Active complications Problem Type 2 diabetes mellitus without E11.9 Active complications Problem Other hyperlipidemia E78.4 Active Problem Atherosclerotic heart disease of I25.111 Active [place] coronary artery with angina pectoris with documented spasm Assessment Other hyperlipidemia E78.4 Active Assessment Essential (primary) hypertension I10 Active Problem Essential (primary) hypertension I10 Active Assessment Atherosclerotic heart disease of I25.111 Active [place] coronary artery with angina pectoris with documented spasm Medications Medication Code System Code Instructions Start Date End Date Status Dosage amlodipine MULTUM 74293 5 mg orally once Oct 09, Active 1 tab(s) a day 2010 Pravachol MULTUM 1884 40 mg orally once June 14, Active 1 tab(s) a day (at 2013 bedtime) amlodipine MULTUM 27194 10 mg orally once Oct 09, Active 1 tab(s) a day 2010 Aspirin Low MULTUM 891808 81 mg orally once Nov 13, Active 1 tab(s) Dose a day 2010 lisinopril MULTUM 30520 40 mg orally once Active 1 tab(s) a day Metoprolol MULTUM 1073 100 mg orally 2 Nov 14, Active 1/2 tab(s) Tartrate times a day 2012 Nitrostat MULTUM 2586 0.4 mg August 30, Active 1 tab(s) sublingually 2011 every 5 minutes Social History Social History Element Qualifiers Date Reported Tobacco use: never. Status Never smoked July 05, 2014 Alcohol: yes. Socially July 05, 2014 Vital Signs Date/Time: Dec 13, 2014 Blood Pressure Systolic 160 mm Hg Weight 141 lbs Height 65 in Blood Pressure Diastolic 80 mm Hg Summary Purpose eClinicalWorks Submission
--- OUTSIDE RECORDS SUMMARY | 2018-04-28 16:11 | XMS REPORT ---
:1965 Author Organization eClinicalWorks Care Team Providers Name Role Phone ROMERO YANCEY Provider Role Unavailable Encounters Encounter Location Date Unknown [facility]. Dec 13, 2014 Unknown [facility]. Dec 25, 2014 Unknown [facility]. Oct 26, 2013 Refills [facility]. Apr 04, 2014 follow up [facility]. July 05, 2014 Problems Problem Type Condition ICD-9 Code Onset Dates Condition Status Assessment Atherosclerotic heart disease of I25.111 Active [place] coronary artery with angina pectoris with documented spasm Problem Type 2 diabetes mellitus without E11.9 Active complications Problem Other hyperlipidemia E78.4 Active Problem Atherosclerotic heart disease of I25.111 Active [place] coronary artery with angina pectoris with documented spasm Assessment Other hyperlipidemia E78.4 Active Assessment Type 2 diabetes mellitus without E11.9 Active complications Problem Essential (primary) hypertension I10 Active Assessment Essential (primary) hypertension I10 Active Medications Medication Code System Code Instructions Start Date End Date Status Dosage Pravachol MULTUM 1884 40 mg orally once June 14, Active 1 tab(s) a day (at 2013 bedtime) Metoprolol MULTUM 1073 100 mg orally 2 Nov 14, Active 1/2 tab(s) Tartrate times a day 2012 lisinopril MULTUM 88129 40 mg orally once Active 1 tab(s) a day Aspirin Low MULTUM 447895 81 mg orally once Nov 13, Active 1 tab(s) Dose a day 2010 amlodipine MULTUM 82988 10 mg orally once Oct 09, Active 1 tab(s) a day 2010 Nitrostat MULTUM 2586 0.4 mg August 30, Active 1 tab(s) sublingually 2011 every 5 minutes Social History Social History Element Qualifiers Date Reported Tobacco use: never. Status Never smoked July 05, 2014 Alcohol: yes. Socially July 05, 2014 Vital Signs Date/Time: Dec 25, 2014 Blood Pressure Systolic 138 mm Hg Weight 142 lbs Height 65 in Blood Pressure Diastolic 80 mm Hg Summary Purpose eClinicalWorks Submission
--- OUTSIDE RECORDS SUMMARY | 2018-04-28 16:11 | XMS REPORT ---
:1965 Author Organization eClinicalWorks Care Team Providers Name Role Phone ROMERO YANCEY Provider Role Unavailable Allergies, Adverse Reactions, Alerts Substance Reaction Event Type N.K.D.A. Info Not Available Non Drug Allergy Encounters Encounter Location Date Unknown [facility]. Dec 13, 2014 Unknown [facility]. Dec 25, 2014 Unknown [facility]. July 11, 2015 follow up [facility]. Oct 31, 2015 Unknown [facility]. Oct 26, 2013 Refills [facility]. Apr 04, 2014 follow up [facility]. July 05, 2014 Problems Problem Type Condition ICD-9 Code Onset Dates Condition Status Assessment Type 2 diabetes mellitus without E11.9 Active complications Assessment Other hyperlipidemia E78.4 Active Problem Type 2 diabetes mellitus without E11.9 Active complications Problem Other hyperlipidemia E78.4 Active Problem CAD of [place]tery [place] I25.111 Active Assessment Other specified cardiac I49.8 Active arrhythmias Assessment Essential (primary) hypertension I10 Active Problem Essential (primary) hypertension I10 Active Assessment CAD of [place] I25.111 Active Medications Medication Code System Code Instructions Start Date End Date Status Dosage Aspirin Low MULTUM 973586 81 mg orally once Nov 13, Active 1 tab(s) Dose a day 2010 amlodipine MULTUM 63707 10 mg orally once Oct 09, Active 1 tab(s) a day 2010 Nitrostat MULTUM 2586 0.4 mg August 30, Active 1 tab(s) sublingually 2011 every 5 minutes Pravachol MULTUM 1884 40 mg orally once Oct 26, Active 1 tab(s) a day (at 2016 bedtime) lisinopril MULTUM 68675 40 mg orally once Dec 26, Active 1 tab(s) a day 2014 Metoprolol MULTUM 1073 100 mg orally 2 Active 1/2 tab(s) Tartrate times a day Social History Social History Element Qualifiers Date Reported Tobacco use: never. Status Never smoked Oct 31, 2015 Alcohol: yes. Socially Oct 31, 2015 Vital Signs Date/Time: Oct 31, 2015 Blood Pressure Systolic 160 mm Hg Weight 144 lbs Height 65 in Blood Pressure Diastolic 70 mm Hg Summary Purpose eClinicalWorks Submission
--- OUTSIDE RECORDS SUMMARY | 2018-04-28 16:11 | XMS REPORT ---
:1965 Author Organization eClinicalWorks Care Team Providers Name Role Phone ROMERO YANCEY Provider Role Unavailable Allergies, Adverse Reactions, Alerts Substance Reaction Event Type N.K.D.A. Info Not Available Non Drug Allergy Encounters Encounter Location Date Unknown [facility]. Dec 13, 2014 Unknown [facility]. Dec 25, [address] [facility]. July 11, 2015 Unknown [facility]. Feb 23, 2016 Unknown [facility]. Oct 26, [address] [facility]. Apr 04, 2014 follow up [facility]. July 05, 2014 follow up [facility]. April 09, 2016 Problems Problem Type Condition ICD-9 Code Onset Dates Condition Status Assessment Chest pain, unspecified type R07.9 Active Problem Type 2 diabetes mellitus without E11.9 Active complications Problem Other hyperlipidemia E78.4 Active Problem CAD of [place] Artery W [place] I25.111 Active Assessment Type 2 diabetes mellitus without E11.9 Active complications Assessment CAD of [place] Artery W [place] I25.111 Active Problem Essential (primary) hypertension I10 Active Assessment Essential (primary) hypertension I10 Active Medications Medication Code System Code Instructions Start Date End Date Status Dosage Aspirin Low MULTUM 862346 81 mg orally once Nov 13, Active 1 tab(s) Dose a day 2010 Metoprolol MULTUM 1073 100 mg orally 2 Active 1/2 tab(s) Tartrate times a day Nitrostat MULTUM 2586 0.4 mg August 30, Active 1 tab(s) sublingually 2011 every 5 minutes amlodipine MULTUM 92478 10 mg orally once Oct 09, Active 1 tab(s) a day 2010 lisinopril MULTUM 19576 40 mg orally once Dec 26, Active 1 tab(s) a day 2014 Crestor MULTUM 68590 10 mg orally once Feb 22, Active 1 tab(s) a day (at 2017 bedtime) Social History Social History Element Qualifiers Date Reported Tobacco use: never. Status Never smoked April 09, 2016 Alcohol: yes. Socially April 09, 2016 Vital Signs Date/Time: April 09, 2016 Blood Pressure Systolic 140 mm Hg Weight 142 lbs Height 65 in Blood Pressure Diastolic 90 mm Hg Summary Purpose eClinicalWorks Submission
--- OUTSIDE RECORDS SUMMARY | 2018-04-28 16:11 | XMS REPORT ---
:1965 Author Organization eClinicalWorks Care Team Providers Name Role Phone ROMERO YANCEY Provider Role Unavailable Allergies, Adverse Reactions, Alerts Substance Reaction Event Type N.K.D.A. Info Not Available Non Drug Allergy Encounters Encounter Location Date Unknown [facility]. Dec 13, 2014 Unknown [facility]. Dec 25, 2014 Unknown [facility]. July 11, 2015 Unknown [facility]. Oct 26, 2013 Refills [facility]. Apr 04, 2014 follow up [facility]. 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 Active Medications Medication Code System Code Instructions Start Date End Date Status Dosage lisinopril MULTUM 58948 40 mg orally once Dec 26, Active 1 tab(s) a day 2014 Pravachol MULTUM 1884 40 orally once a Active 1 tab(s) day (at bedtime) amlodipine MULTUM 46956 10 mg orally once Oct 09, Active 1 tab(s) a day 2010 Nitrostat MULTUM 2586 0.4 mg August 30, Active 1 tab(s) sublingually 2011 every 5 minutes Aspirin Low MULTUM 614282 81 mg orally once Nov 13, Active 1 tab(s) Dose a day 2010 Metoprolol MULTUM 1073 100 mg orally 2 Nov 14, Active 1/2 tab(s) Tartrate times a day 2011 Social History Social History Element Qualifiers Date Reported Tobacco use: never. Status Never smoked July 11, 2015 Alcohol: yes. Socially July 11, 2015 Vital Signs Date/Time: July 11, 2015 Blood Pressure Systolic 130 mm Hg Weight 142 lbs Height 65 in Blood Pressure Diastolic 70 mm Hg Summary Purpose eClinicalWorks Submission
[2018-04-28 16:52] LABS: Absolute Lymphocytes (CBC) 1.3 K/uL (0.7-4.9); Absolute Monocytes 0.7 K/uL (0.1-1.3); Absolute Neutrophil 4.3 K/uL (1.8-8.0); Basophils % 0.6 % (0-1.3); Hematocrit 40.5 % (39.6-49.0); Lymphocytes % 20.2 % (15.3-44.8); MPV 8.6 fL (7.6-11.3); Monocytes % 10.8 % (3.3-12.3); RBC Red Blood Cell Count 4.59 M/uL (4.33-5.43)
[2018-04-28 16:57] LABS: Protime INR 1.01
[2018-04-28 17:15] LABS: ALT/SGPT 36 U/L (12-78); AST/SGOT 19 U/L (15-37); Albumin 4.4 g/dL (3.4-5.0); Alkaline Phosphatase 103 U/L (45-117); BUN Blood Urea Nitrogen 16 mg/dL (7-18); Bicarbonate 26 mmol/L (21-32); Bilirubin Direct 0.2 mg/dL (0-0.2); Bilirubin Total 0.5 mg/dL (0.2-1.0); Glucose Level 120 mg/dL (74-106); Magnesium 2.3 mg/dL (1.8-2.4); NT PRO-BNP 37 pg/mL (<125); Potassium 4.1 mmol/L (3.5-5.1); Protein, Total 8.1 g/dL (6.4-8.2); Sodium Level 136 mmol/L (136-145); Troponin (Emerg Dept Use Only) < 0.02 ng/mL (0.0-0.045)
--- NOTE | 2018-04-28 17:28 | RAD REPORT ---
EXAM DESCRIPTION: [facility] Single View04/28/2018 5:15 pm CLINICAL HISTORY: Chest pain COMPARISON: 2017 FINDINGS: Nodular opacities Rich overlying each lung base are unchanged likely representing nipple shadows. Lungs appear clear of acute infiltrate The heart is normal size IMPRESSION: No acute abnormalities displayed
--- NOTE | 2018-04-28 18:23 | ER ---
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 he took one of his meds to treat it, clonazepam, states he feels his heart beating, pulsing. Transition of care: patient was not received from another setting of care. Onset of symptoms was April 28, 2018 at 15:30. Risk Assessment: Do you want to hurt yourself or someone else? Patient reports no desire to harm self or others. Initial Sepsis Screen: Does the patient meet any 2 criteria? No. Patient's initial sepsis screen is negative. Does the patient have a suspected source of infection? No. Patient's initial sepsis screen is negative. Care prior to arrival: None. 16:17 Method Of Arrival: Ambulatory ch 16:17 Acuity: SKINNY 2 ch Triage Assessment: 16:19 Headache History: The patient has had previous headaches and this one is more severe ch than previous episodes. General: Appears in no apparent distress. uncomfortable. 16:24 General: Behavior is calm, cooperative, appropriate for age. Neuro: Level of tw2 Consciousness is awake, alert, obeys commands. 16:46 Pain: Pain level that patient reports is acceptable is 2 out of 10 on a pain scale. tw2 Pain began 2-3 days ago. Also complains of no other associated symptoms. Historical: - Allergies: 16:47 No Known Allergies; hb - Home Meds: 16:39 amlodipine 10 mg tab 1 tab once daily [Active]; lisinopril 40 mg Oral tab 1 tab once tw2 daily [Active]; BRILINTA 90 mg oral tab 1 tab 2 times per day [Active]; rosuvastatin 10 mg oral tab 1 tab once daily [Active]; Fish Oil 1,000 mg oral cap [Active]; clonazepam 0.5 mg Oral tab 1 tab 3 times per day [Active]; carvedilol 12.5 mg oral tab 1 tab 2 times per day [Active]; aspirin 81 mg Oral TbEC 1 tab once daily [Active]; nitroglycerin 0.4 mg SL subl 1 tab [Active]; - PSHx: 16:24 cardiac stent; tw2 - Immunization history:: Adult Immunizations up to date. - Social history:: Smoking status: Patient/guardian denies using tobacco. - Ebola Screening: : Patient negative for fever greater than or equal to 101.5 degrees Fahrenheit, and additional compatible Ebola Virus Disease symptoms Patient denies exposure to infectious person Patient denies travel to an Ebola-affected area in the 21 days before illness onset No symptoms or risks identified at this time. Screenin:21 Abuse screen: Denies threats or abuse. Nutritional screening: No deficits noted. tw2 Tuberculosis screening: No symptoms or risk factors identified. Fall Risk None identified. Assessment: 16:31 General: Appears in no apparent distress. well groomed. Pain: Denies pain. Neuro: Level tw2 of Consciousness is awake, alert, obeys commands, Oriented to person, place, time, situation. Neuro: Reports dizziness, headache. Cardiovascular: Reports palpitations, Heart tones S1 S2 Patient's skin is warm and dry. Respiratory: Airway is patent is compromised Respiratory effort is even, unlabored, Respiratory pattern is regular, symmetrical, Breath sounds are clear bilaterally. GI: No signs and/or symptoms were reported involving the gastrointestinal system. Abdomen is flat, Bowel sounds present X 4 quads. : No signs and/or symptoms were reported regarding the genitourinary system. EENT: No signs and/or symptoms were reported regarding the EENT system. Derm: No signs and/or symptoms reported regarding the dermatologic system. Musculoskeletal: Circulation, motion, and sensation intact. Range of motion: intact in all extremities. 17:27 Reassessment: Patient appears in no apparent distress at this time. Patient and/or hb family updated on plan of care and expected duration. Pain level reassessed. Patient is alert, oriented x 3, equal unlabored respirations, skin warm/dry/pink. 18:02 Reassessment: Patient appears in no apparent distress at this time. Patient and/or tw2 family updated on plan of care and expected duration. Pain level reassessed. Patient is alert, oriented x 3, equal unlabored respirations, skin warm/dry/pink. 19:27 Reassessment: Patient appears in no apparent distress at this time. No changes from ak1 previously documented assessment. Patient and/or family updated on plan of care and expected duration. Pain level reassessed. Patient is alert, oriented x 3, equal unlabored respirations, skin warm/dry/pink. pt ambulated to restroom with out assistance with steady gait. Vital Signs: 16:19 BP 156 / 90; Pulse 63; Resp 16; Temp 98.4; Pulse Ox 99% on R/A; Weight 68.04 kg; Height ch 5 ft. 5 in. (165.10 cm); Pain 6/10; 17:15 BP 158 / 87; Pulse 59; Resp 16; Pulse Ox 100% on R/A; Pain 4/10; hb 18:03 BP 133 / 92; Pulse 91; Resp 16; Pulse Ox 99% on R/A; hb 19:25 BP 140 / 87; Pulse 57; Resp 18; Pulse Ox 100% on R/A; tl2 16:19 Body Mass Index 24.96 (68.04 kg, 165.10 cm) ED Course: 16:08 Patient arrived in ED. dl4 16:08 out of town, doctor is Private Physician. dl4 16:18 Triage completed. 16:19 Arm band placed on left wrist. Patient placed in an exam room, on a stretcher, on pulse ch oximetry. 16:21 Betina Garcia, RN is Primary Nurse. tw2 16:22 Bed in low position. Call light in reach. monitoring coordinator on. Pulse ox on. NIBP on. tw2 16:22 EKG done, by system technologist. reviewed by Beau Rodriges MD. sm3 16:23 Conor Ventura PA is PHCP. jr8 16:23 Beau Rodriges MD is Attending Physician. jr8 16:43 Inserted saline lock: 18 gauge in right antecubital area, using aseptic technique. hb Blood collected. 17:12 X-ray completed. Portable x-ray completed in exam room. Patient tolerated procedure ml well. 17:14 XRAY Chest (1 view) In Process Unspecified. EDMS 18:03 No provider procedures requiring assistance completed. tw2 18:52 Cammie Carmen MD is Hospitalizing Provider. jr8 18:52 Lorene Victoria MD is Hospitalizing Provider. jr8 Administered Medications: No medications were administered Outcome: 18:22 ER care complete, transfer ordered by MD. jr8 18:53 Decision to Hospitalize by Provider. jr8 21:12 Patient left the ED. 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 he took one of his meds to treat it. 16: 16:19 Pulse 63bpm; Resp 16bpm; Pulse Ox 99% RA; Temp 98.4F; 68.04 kg; Height 5 ft. 5 ch in.; BMI: 24.9; Pain 6/10; ch 16:24 16:19 Allergies: No Known Allergies; ch tw2 16:24 16:19 PMHx: High Cholesterol; ch tw2 16:24 16:19 PMHx: Hypertension; ch tw2 16:24 16:19 PMHx: Myocardial infarction; ch tw2 16:24 16:19 PSHx: cardiac stent; ch tw2
--- NOTE | 2018-04-28 18:23 | EDPHYS ---
Physician Documentation [facility] Name: Danny Dickerson Age: 53 yrs Sex: Male : 1965 Arrival Date: 04/28/2018 Time: 16:08 Bed 2 Private MD: out of town, doctor ED Physician Beau Rodriges HPI: 04/28 17:37 This 53 yrs old Male presents to ER via Ambulatory with complaints of jr8 Headache, Dizziness, Palpitations. 17:37 The patient presents with a history of heart racing. Context: The symptoms occur at jr8 rest. Onset: The symptoms/episode began/occurred acutely, today. Duration: The patient or guardian reports a single episode, that is now resolved. Modifying factors: The symptoms are aggravated by nothing. The symptoms are alleviated by nothing. Associated signs and symptoms: Pertinent positives: lightheadedness, near-syncope. Severity of symptoms: At their worst the symptoms were moderate in the emergency department the symptoms have improved markedly. The patient has not experienced similar symptoms in the past. The patient has not recently seen a physician. Cardiac stent 5 weeks ago. Has felt slightly dizzy since procedure. Today had palpitation feeling, dizzy, and near syncopal episode . Historical: - Allergies: 16:47 No Known Allergies; hb - Home Meds: 16:39 amlodipine 10 mg tab 1 tab once daily [Active]; lisinopril 40 mg Oral tab 1 tab once tw2 daily [Active]; BRILINTA 90 mg oral tab 1 tab 2 times per day [Active]; rosuvastatin 10 mg oral tab 1 tab once daily [Active]; Fish Oil 1,000 mg oral cap [Active]; clonazepam 0.5 mg Oral tab 1 tab 3 times per day [Active]; carvedilol 12.5 mg oral tab 1 tab 2 times per day [Active]; aspirin 81 mg Oral TbEC 1 tab once daily [Active]; nitroglycerin 0.4 mg SL subl 1 tab [Active]; - PSHx: 16:24 cardiac stent; tw2 - Immunization history:: Adult Immunizations up to date. - Social history:: Smoking status: Patient/guardian denies using tobacco. - Ebola Screening: : Patient negative for fever greater than or equal to 101.5 degrees Fahrenheit, and additional compatible Ebola Virus Disease symptoms Patient denies exposure to infectious person Patient denies travel to an Ebola-affected area in the 21 days before illness onset No symptoms or risks identified at this time. ROS: 17:37 Eyes: Negative for injury, pain, redness, and discharge, ENT: Negative for injury, jr8 pain, and discharge, Neck: Negative for injury, pain, and swelling, Respiratory: Negative for shortness of breath, cough, wheezing, and pleuritic chest pain, Abdomen/GI: Negative for abdominal pain, nausea, vomiting, diarrhea, and constipation, Back: Negative for injury and pain, MS/Extremity: Negative for injury and deformity, Skin: Negative for injury, rash, and discoloration. 17:37 Cardiovascular: Positive for palpitations, Negative for chest pain, edema, orthopnea, paroxysmal nocturnal dyspnea. 17:37 Neuro: Positive for dizziness, near syncope. Exam: 17:37 Eyes: Pupils equal round and reactive to light, extra-ocular motions intact. Lids and jr8 lashes normal. Conjunctiva and sclera are non-icteric and not injected. Cornea within normal limits. Periorbital areas with no swelling, redness, or edema. ENT: Nares patent. No nasal discharge, no septal abnormalities noted. Tympanic membranes are normal and external auditory canals are clear. Oropharynx with no redness, swelling, or masses, exudates, or evidence of obstruction, uvula midline. Mucous membranes moist. Neck: Trachea midline, no thyromegaly or masses palpated, and no cervical lymphadenopathy. Supple, full range of motion without nuchal rigidity, or vertebral point tenderness. No Meningismus. Respiratory: Lungs have equal breath sounds bilaterally, clear to auscultation and percussion. No rales, rhonchi or wheezes noted. No increased work of breathing, no retractions or nasal flaring. Abdomen/GI: Soft, non-tender, with normal bowel sounds. No distension or tympany. No guarding or rebound. No evidence of tenderness throughout. Back: No spinal tenderness. No costovertebral tenderness. Full range of motion. Skin: Warm, dry with normal turgor. Normal color with no rashes, no lesions, and no evidence of cellulitis. MS/ Extremity: Pulses equal, no cyanosis. Neurovascular intact. Full, normal range of motion. Neuro: Awake and alert, GCS 15, oriented to person, place, time, and situation. Cranial nerves II-XII grossly intact. Motor strength 5/5 in all extremities. Sensory grossly intact. Cerebellar exam normal. Normal gait. 17:37 Cardiovascular: Rate: normal, Rhythm: irregular, Pulses: Pulses are 2+ in right radial artery and left radial artery. Heart sounds: normal, normal S1and S2, no S3 or S4, no murmur, no rub, no gallop, Edema: is not appreciated, JVD: is not appreciated. Vital Signs: 16:19 BP 156 / 90; Pulse 63; Resp 16; Temp 98.4; Pulse Ox 99% on R/A; Weight 68.04 kg; Height ch 5 ft. 5 in. (165.10 cm); Pain 6/10; 17:15 BP 158 / 87; Pulse 59; Resp 16; Pulse Ox 100% on R/A; Pain 4/10; hb 18:03 BP 133 / 92; Pulse 91; Resp 16; Pulse Ox 99% on R/A; hb 19:25 BP 140 / 87; Pulse 57; Resp 18; Pulse Ox 100% on R/A; tl2 16:19 Body Mass Index 24.96 (68.04 kg, 165.10 cm) ch MDM: 16:35 Patient medically screened. jr8 18:19 Data reviewed: vital signs, nurses notes, lab test result(s), EKG, radiologic studies, jr8 plain films. Data interpreted: Pulse oximetry: on room air is 99 %. Interpretation: normal. Counseling: I had a detailed discussion with the patient and/or guardian regarding: the historical points, exam findings, and any diagnostic results supporting the discharge/admit diagnosis, lab results, radiology results, the need to transfer to another facility. ED course: After discussing with patient that he needs to be admitted for cardiology to evaluate him for dysrhythmia. Patient wants to go where his integration solution architect is which is [facility]. Dr. Xavier Arias was consulted there and accepted for consult. Will go to medicine at hospital . 18:53 ED course: [facility] at capacity. Patient requests to stay here . 8 04/28 16:36 Order name: Basic Metabolic Panel; Complete Time: 17:42 [facility] 04/28 16:36 Order name: CBC with Diff; Complete Time: 17:42 [facility] 04/28 16:36 Order name: LFT's; Complete Time: 17:42 04/28 16:36 Order name: Magnesium; Complete Time: 17:04/28 16:36 Order name: NT PRO-BNP; Complete Time: 17:04/28 16:36 Order name: PT-INR; Complete Time: 17:42 04/28 16:36 Order name: Troponin (emerg Dept Use Only); Complete Time: 17:04/28 16:36 Order name: XRAY Chest (1 view); Complete Time: 17:42 04/28 16:36 Order name: EKG; Complete Time: 16:37 04/28 16:36 Order name: Cardiac monitoring; Complete Time: :04/28 16:36 Order name: EKG - Nurse/Tech; Complete Time: 16:45 04/28 16:36 Order name: IV Saline Lock; Complete Time: 16:45 04/28 16:36 Order name: Labs collected and sent; Complete Time: 16:04/28 16:36 Order name: O2 Per Protocol; Complete Time: 16:45 04/28 16:36 Order name: O2 Sat Monitoring; Complete Time: 16:45 Administered Medications: No medications were administered Disposition: 04/28/18 18:53 Hospitalization ordered by Lorene Victoria for Observation. Preliminary diagnosis are Abnormal electrocardiogram [ECG] [EKG], Ventricular premature depolarization, Near Syncope. - Bed requested for Telemetry/MedSurg (observation). - Status is Observation. ak1 - Condition is Stable. - Problem is new. - Symptoms have improved. UTI on Admission? No Addendum: 05/01/2018 10:15 Co-signature as Attending Physician, Beau Rodriges MD I agree with the assessment and c malone plan of care. Signatures: Dispatcher [employer] Tracy Espinosa, RN Beau Puente ch, MD MD cha Roszak, Josh, PA PA jr8 Jadyn Mena RN RN ak1 Kellie Black RN RN cg Leigh Lowe RN RN Betina Garcia RN RN tw2 Corrections: (The following items were deleted from the chart) 04/28 16:24 16:19 Allergies: No Known Allergies; ch tw2 16:24 16:19 PMHx: High Cholesterol; tw2 16:24 16:19 PMHx: Hypertension; tw2 16:24 16:19 PMHx: Myocardial infarction; tw2 16:24 16:19 PSHx: cardiac stent; tw2 18:52 18:22 04/28/2018 18:22 Transfer ordered to Other Acute Care Facility. Diagnosis is jr8 Abnormal electrocardiogram [ECG] [EKG]; Ventricular premature depolarization; Near Syncope. Reason for transfer: Higher level of care. Accepting physician is Hugo. Condition is Stable. Problem is new. Symptoms are unchanged. jr8 20:50 18:53 Hospitalization Ordered by Lorene Victoria MD for Observation. Preliminary cg diagnosis is Abnormal electrocardiogram [ECG] [EKG]; Ventricular premature depolarization; Near Syncope. Bed requested for Telemetry/MedSurg (observation). Status is Observation. Condition is Stable. Problem is new. Symptoms have improved. UTI on Admission? No. jr8 21:12 20:50 04/28/2018 18:53 Hospitalization Ordered by Lorene Victoria MD for Observation. ak1 Preliminary diagnosis is Abnormal electrocardiogram [ECG] [EKG]; Ventricular premature depolarization; Near Syncope. Bed requested for Telemetry/MedSurg (observation). Status is Observation. Condition is Stable. Problem is new. Symptoms have improved. UTI on Admission? No. cg
--- NOTE | 2018-04-28 21:04 | P.HP ---
Certification for Inpatient Patient admitted to: Observation With expected LOS: <2 Midnights Practitioner: I am a practitioner with admitting privileges, knowledge of patient current condition, hospital course, and medical plan of care. Services: Services provided to patient in accordance with Admission requirements found in Title 42 Section 412.3 of the Code of Federal Regulations Patient History Date of Service: 04/28/18 Reason for admission: palpitations, dizziness History of Present Illness: Mr Dickerson is a 53 years old male with history of CAD, he had a stent placement about 5 weeks ago. He said that after this procedure, he has had recurrent episodes of dizziness and palpitations, lasting from seconds to a couple of minutes. However, today, his dizziness and palpitations last for about 10 minutes. He got concern and came to ER for evaluation. He denied chest pain or SOB. EKG shows normal SR with frequent PVC's (trigeminy). Initial trop I is negative. BP at arrival 156/90, HR 63. No fever. Allergies No Known Allergies Allergy (Unverified 04/28/16 12:15) Home medications list reviewed: Yes Home Medications: Amlodipine Besylate 10 mg PO DAILY 04/27/16 Cholecalciferol (Vitamin D3) [Vitamin D3] 2,000 unit PO BID 04/27/16 Lisinopril 40 mg PO DAILY 04/27/16 Metoprolol Tartrate 50 mg PO BID 04/27/16 [place]-3 Fatty Acids [Fish Oil] 1,000 mg PO BID 04/27/16 Rosuvastatin Calcium 10 mg PO BEDTIME 04/27/16 - Past Medical/Surgical History Diabetic: No -: HTN -: Hyperlipidemia -: CO -: coronary stent placement - Family History Family History: Reviewed- Non-Contributory - Social History Smoking Status: Former smoker Alcohol use: No CD- Drugs: No Caffeine use: Yes Place of Residence: Home Review of Systems 10-point ROS is otherwise unremarkable Physical Examination - Physical Exam General: Alert, In no apparent distress HEENT: Atraumatic, PERRLA, Mucous membr. moist/pink, EOMI, Sclerae nonicteric Neck: Supple, 2+ carotid pulse no bruit, No LAD, Without JVD or thyroid abnormality Respiratory: Clear to auscultation bilaterally, Normal air movement Cardiovascular: Regular rate/rhythm, Normal S1 S2 Gastrointestinal: Normal bowel sounds, No tenderness Musculoskeletal: No tenderness Integumentary: No rashes Neurological: Normal speech, Normal strength at 5/5 x4 extr, Normal tone, Normal affect Lymphatics: No axilla or inguinal lymphadenopathy - Studies Laboratory Data (last 24 hrs) 04/28/18 16:40: PT 11.9, INR 1.01 04/28/18 16:40: WBC 6.4, Hgb 13.4 L, Hct 40.5, Plt Count 223 04/28/18 16:40: Sodium 136, Potassium 4.1, BUN 16, Creatinine 0.98, Glucose 120 H, Magnesium 2.3, Total Bilirubin 0.5, AST 19, ALT 36, Alkaline Phosphatase 103 Assessment and Plan - Problems (Diagnosis) (1) Dizziness Current Visit: Yes Status: Acute (2) Palpitation Current Visit: Yes Status: Acute (3) Coronary artery disease Current Visit: No Status: Acute Qualifiers: Coronary Disease-Associated Artery/Lesion type: unspecified vessel or lesion type [place] vs. transplanted heart: unspecified whether [place] or transplanted heart Associated angina: angina presence unspecified Qualified Code(s): I25.10 - Atherosclerotic heart disease of [place] coronary artery without angina pectoris (4) Dyslipidemia Onset Date: 04/28/16 Current Visit: No Status: Chronic (5) HTN (hypertension) Onset Date: 04/28/16 Current Visit: No Status: Chronic Qualifiers: Hypertension type: essential hypertension Qualified Code(s): I10 - Essential (primary) hypertension - Plan The patient will be admitted to the hospital due to symptomatic PVC's. He has been taking his medication as indicated. Will consult cardiology team for evaluation and medication optimization. Continue potline monitor. - Advance Directives Does patient have a Living Will: No Does patient have a Durable POA for Healthcare: No - Code Status/Comfort Care Code Status: Full Code
--- NOTE | 2018-04-28 21:15 | EKG ---
Test Date: 2018-04-28 Test Time: 16:18:53 Menagerie Superintendent: RAMIRO MEASUREMENT RESULTS: Intervals: Rate: 96 RI: 182 QRSD: 88 QT: 348 QTc: 439 Bracey: P: 71 RI: 182 QRS: 72 T: 32 INTERPRETIVE STATEMENTS: Sinus rhythm with frequent premature ventricular complexes Otherwise normal ECG Compared to ECG 04/28/2016 06:38:12 Ventricular premature complex(es) now present Sinus bradycardia no longer present Electronically Signed On 04-28-18 21:14:40 CDT by Catalino Hair
[2018-04-28 21:24] VITALS: O2SAT 100
[2018-04-28] MEDS ORDERED: ROSUVASTATIN 10 MG TAB PO SCH (21:31)
[2018-04-28] MEDS: TICAGRELOR 90 MG TABLET PO SCH (21:31)
[2018-04-28] MEDS ORDERED: ONDANSETRON 4 MG/2 ML VIAL IV PRN (21:31)
[2018-04-28 21:40] VITALS: BMI 24.0
[2018-04-28 22:36] LABS: Troponin I < 0.02 ng/mL (0.0-0.045)
[2018-04-29] MEDS ORDERED: CARVEDILOL 12.5 MG TAB PO SCH (06:00)
[2018-04-29 06:12] LABS: Absolute Lymphocytes (CBC) 1.6 K/uL (0.7-4.9); Absolute Monocytes 0.9 K/uL (0.1-1.3); Absolute Neutrophil 4.5 K/uL (1.8-8.0); Basophils % 0.5 % (0-1.3); Eosinophils % 1.8 % (0-4.4); Hematocrit 38.7 % (39.6-49.0); Lymphocytes % 21.9 % (15.3-44.8); MPV 8.5 fL (7.6-11.3); RBC Red Blood Cell Count 4.37 M/uL (4.33-5.43)
[2018-04-29 06:31] LABS: Potassium 3.8 mmol/L (3.5-5.1)
[2018-04-29] MEDS ORDERED: VITAMIN D 1000 UNIT TAB PO SCH (09:00)
[2018-04-29] MEDS ORDERED: DOCOSAHEXANOIC AC/EPA 1000 MG PO SCH (09:00)
[2018-04-29] MEDS ORDERED: LISINOPRIL 20 MG TAB PO SCH (09:00)
[2018-04-29] MEDS ORDERED: ENOXAPARIN 40 MG/0.4 ML SQ SCH (09:00)
--- NOTE | 2018-04-29 09:04 | P.PN ---
Subjective Date of Service: 04/29/18 Primary Care Provider: Dr. Voss([place], [place]); [place] [place] Complaint: palpitations, dizziness Subjective: Improving Physical Examination - Vital Signs Temperature: 96.8 F Blood Pressure: 125/78 Pulse: 59 Respirations: 16 Pulse Ox (%): 99 - Physical Exam General: Alert, In no apparent distress, Oriented x3, Cooperative HEENT: Atraumatic Neck: Supple Respiratory: Clear to auscultation bilaterally, Normal air movement Cardiovascular: Normal pulses, Regular rate/rhythm Gastrointestinal: Normal bowel sounds, Soft and benign, Non-distended, No masses , No rebound, No guarding Musculoskeletal: No erythema, No tenderness, No warmth Integumentary: No tenderness/swelling, No erythema, No warmth, No cyanosis Neurological: Normal speech, Normal strength at 5/5 x4 extr, Normal tone, Normal affect - Studies Laboratory Data (last 24 hrs) 04/28/18 16:40: PT 11.9, INR 1.01 04/28/18 16:40: WBC 6.4, Hgb 13.4 L, Hct 40.5, Plt Count 223 04/28/18 16:40: Sodium 136, Potassium 4.1, BUN 16, Creatinine 0.98, Glucose 120 H, Magnesium 2.3, Total Bilirubin 0.5, AST 19, ALT 36, Alkaline Phosphatase 103 Medications List Reviewed: Yes Assessment & Plan Discharge Plan: Home Plan to discharge in: 24 Hours Physician Review Additional Text: Impression: Dizziness and palpitation likely from overmedication CAD with recent stent Hypertension Hyperlipidemia Plan: Dizziness and palpitation likely from overmedication: Patient takes 3 different blood pressure medications. Patient has had occasional low blood pressures. Norvasc discontinued. Blood pressure is better controlled without low blood pressures. Cardiac enzymes unremarkable. Cardiology consulted for further recommendation. Anticipate possible discharge today with adjustment in his medication. Norvasc will need to be discontinued. Patient may continue with lisinopril and carvedilol. 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 CAD with recent stent: Cardiac enzymes unremarkable. Await recommendations by Cardiology. 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 Hypertension: Medication adjusted. Norvasc discontinued. Continue with carvedilol and lisinopril. Hyperlipidemia: Continue medication. Time Spent Managing Pts Care (In Minutes): 55
[2018-04-29] MEDS: TICAGRELOR 90 MG TABLET PO SCH (09:59)
--- NOTE | 2018-04-29 10:08 | CON ---
Chief Complaint: Heart skipping. History Of Present Illness: Mr. Dickerson is a gentleman, who has hypertension, coronary heart disease wi th a stent remotely, not having chest pain. He just started to feel his heart skip. An EKG showed s inus rhythm with PVCs. The PVCs have resolved now. He takes Brilinta, rosuvastatin, lisinopril, and carvedilol 12.5 b.i.d. He uses no tobacco. He does not have diabetes. He is not having chest pain or shortness of breath. Since he has been in the hospital, all his PVCs have resolved, and his trop onin levels are normal. EKG is otherwise normal. Physical Examination: Vital Signs: 5 feet 5 inches, 144 pounds. Blood pressure 125/78, pulse 59. HEENT: Normal. Carotids: No bruit. Lungs: Clear. Heart: Within normal limits. Abdomen: Soft. Extremities: Normal. Impression: I would recommend we increase the dose of his carvedilol to 25 b.i.d. and allow him to g o home. He plans to see his usual alarm service technician on Tuesday, 2 days from now, so we can just discharge him with instructions, and increase the amount of carvedilol he takes. I do not think he needs to st ay in the hospital any longer. MARTIN Voice ID: [id number] Report ID: [id number]
--- NOTE | 2018-04-29 10:37 | P.DS ---
Admission Date: 04/28/18 Discharge Date: 04/29/18 Primary Care Provider: Dr. Voss([place], [place]); Cardiology-[facility] Disposition: ROUTINE DISCHARGE Discharge Condition: GOOD Reason for Admission: palpitations, dizziness Consultations: Cardiology-Dr. Hair Procedures: Medical problem list: Dizziness, palpitation with noted PVCs likely from overmedication CAD with recent stent Hypertension Hyperlipidemia Brief History of Present Illness: 53-year-old male presented to emergency room with dizziness, palpitation. Patient with history of CAD with prior stent, hypertension and hyperlipidemia. Patient would report low blood pressures at home. Patient found to have PVCs. Patient admitted for further treatment and evaluation. Hospital Course: Patient presented with dizziness, palpitation and noted PVCs. Patient reported some low blood pressures at home. The patient was monitored and observed. Medication adjusted. Norvasc discontinued. Cardiac enzymes unremarkable. No further PVCs noted. Cardiology recommended to increase carvedilol and continue with lisinopril. No further intervention was required as per Cardiology. At discharge patient will continue with carvedilol 25 mg 1 pill twice daily and lisinopril 40 mg daily. Norvasc has been discontinued. Patient will continue his other medications including aspirin 81 mg daily, Brilinta 90 mg 1 pill twice daily, and nitroglycerin as needed for chest pain. Patient has follow up with his button pusher on Tuesday. Further adjustment can be done at that time. Patient has hypertension. As recommended above, Norvasc has been discontinued. Carvedilol increased. At discharge he will continue with carvedilol 25 mg 1 pill twice daily and lisinopril 40 mg daily. Further adjustment in medication can be done by his button pusher on Tuesday. Medication may need to be held if blood pressure systolic less than 100. Patient with hyperlipidemia. Patient will continue with his medication-Crestor 10 mg daily and omega-3 medication. Vital Signs/Physical Exam: Temp Pulse Resp BP Pulse Ox 96.8 F 56 16 110/70 99 04/29/18 09:04 04/29/18 09:58 04/29/18 09:04 04/29/18 09:58 04/29/18 09:04 General: Alert, In no apparent distress, Oriented x3, Cooperative HEENT: Atraumatic Neck: Supple Respiratory: Clear to auscultation bilaterally, Normal air movement Cardiovascular: Normal pulses, Regular rate/rhythm Gastrointestinal: Normal bowel sounds, Soft and benign, Non-distended, No tenderness, No masses, No rebound, No guarding Musculoskeletal: No erythema, No tenderness, No warmth Integumentary: No tenderness/swelling, No erythema, No warmth, No cyanosis Neurological: Normal speech, Normal strength at 5/5 x4 extr, Normal tone, Normal affect Laboratory Data at Discharge: WBC 7.1 K/uL (4.3-10.9) 04/29/18 05:44 Hgb 12.9 g/dL (13.6-17.9) L 04/29/18 05:44 Hct 38.7 % (39.6-49.0) L 04/29/18 05:44 Plt Count 209 K/uL (152-406) 04/29/18 05:44 PT 11.9 SECONDS (9.5-12.5) 04/28/18 16:40 INR 1.01 04/28/18 16:40 Sodium 138 mmol/L (136-145) 04/29/18 05:44 Potassium 3.8 mmol/L (3.5-5.1) 04/29/18 05:44 BUN 15 mg/dL (7-18) 04/29/18 05:44 Creatinine 0.93 mg/dL (0.55-1.3) 04/29/18 05:44 Glucose 106 mg/dL (74-106) 04/29/18 05:44 Magnesium 2.3 mg/dL (1.8-2.4) 04/28/18 16:40 Total Bilirubin 0.5 mg/dL (0.2-1.0) 04/28/18 16:40 AST 19 U/L (15-37) 04/28/18 16:40 ALT 36 U/L (12-78) 04/28/18 16:40 Alkaline Phosphatase 103 U/L (45-117) 04/28/18 16:40 Troponin I < 0.02 ng/mL (0.0-0.045) 04/29/18 05:44 Home Medications: Cholecalciferol (Vitamin D3) [Vitamin D3] 2,000 unit PO BID 04/27/16 Lisinopril 40 mg PO DAILY 04/27/16 [place]-3 Fatty Acids [Fish Oil] 1,000 mg PO BID 04/27/16 Rosuvastatin Calcium 10 mg PO BEDTIME 04/27/16 Aspirin Chewable [Aspirin Chewable*] 81 mg PO BEDTIME 04/28/18 Nitroglycerin [Nitrostat*] 0.4 mg SL SEECOM PRN 04/28/18 Ticagrelor [Brilinta*] 90 mg PO BID 04/28/18 clonazePAM [Klonopin*] 0.5 mg PO BIDP PRN 04/28/18 Carvedilol [Coreg*] 25 mg PO BID 6AM 6PM #60 tab 04/29/18 New Medications: Carvedilol [Coreg*] 25 mg PO BID 6AM 6PM #60 tab Patient Discharge Instructions: 1. Patient to follow up with his button pusher on Tuesday. 2. Patient presented with dizziness, palpitation and noted PVCs. Patient reported some low blood pressures at home. The patient was monitored and observed. Medication adjusted. Norvasc discontinued. Cardiac enzymes unremarkable. No further PVCs noted. Cardiology recommended to increase carvedilol and continue with lisinopril. No further intervention was required as per Cardiology. At discharge patient will continue with carvedilol 25 mg 1 pill twice daily and lisinopril 40 mg daily. Norvasc has been discontinued. Patient will continue his other medications including aspirin 81 mg daily, Brilinta 90 mg 1 pill twice daily, and nitroglycerin as needed for chest pain. Patient has follow up with his button pusher on Tuesday. Further adjustment can be done at that time. 3. Patient has hypertension. As recommended above, Norvasc has been discontinued. Carvedilol increased. At discharge he will continue with carvedilol 25 mg 1 pill twice daily and lisinopril 40 mg daily. Further adjustment in medication can be done by his button pusher on Tuesday. Medication may need to be held if blood pressure systolic less than 100. 4. Patient with hyperlipidemia. Patient will continue with his medication-Crestor 10 mg daily and omega-3 medication. Diet: AHA Activity: Ad aguila Time spent managing pt's care (in minutes): 55
[2018-04-29 14:17] VITALS: BP 116/68; TEMP 97.3
[2018-04-29] MEDS ORDERED: CARVEDILOL 25 MG TAB PO SCH (18:00)
== END 2018-04-29 11:48 | disposition home or self-care (01) ==
LOC: ER 16:05 → ERHOLD 20:50 → 2ND 21:02
PROVIDERS: ADMIT Internal Medicine; ATTEND Internal Medicine
DX: R42 Dizziness and giddiness (principal); R00.2 Palpitations; I49.3 Ventricular premature depolarization; I25.10 Atherosclerotic heart disease of native coronary artery without angina pectoris; I10 Essential (primary) hypertension; E78.5 Hyperlipidemia, unspecified; Z95.5 Presence of coronary angioplasty implant and graft
CPT/HCPCS: 36415; 71045; 80048; 80076; 83735; 83880; 84439; 84484; 85025; 85610; 93005; 99284; G0378; J1650